=== PATIENT | male | born 1965 | race Caucasian/White ===

== ENCOUNTER 2016-10-08 10:44 | Day surgery (SDC) | payer OTHER ==
--- NOTE | 2016-10-07 08:59 | PCM.ANEPRE ---
Anesthesia Pre-Op Review Reason for Review: STOP BANG 03/02 W/ SLEEP STUDY PLANNED, IDIOPATHIC VT Anesthesia Recommendations: Proceed with Procedure Additional Comments 51 yo M scheduled for cysto with left ureteroscopy and stent placement, laser lithotripsy. Wt 110 kg (BMI 33) with Stop Bang 03/02, scheduled for sleep study but not yet completed. Non-ST MT on 04/06/2016 with cath showing mild non- ostructive CAD, normal ETT for ischemia. 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 Presented most recently to [facility] on 09/26 with left flank pain, with multiple left ureteral calculi necessitating this procedure. Delaying care for sleep study not ideal given patient's condition. Given this, proceed with procedure as scheduled including MARLENA precautions and DOS evaluation. Patient at increased risk for post-operative admission. Chart Reviewed by: Daryl Samuel MD Oct 07, 2016 08:59
[2016-10-08] VITALS (9 sets, daily range): BP systolic 132–142; BP diastolic 80–97; PULSE 63–72; RESP 15–17; O2SAT 95–99
[~2016-10-08] VITALS: Ht 182.9 cm; Wt 110.7 kg
[~2016-10-08 10:44] MED LIST: ASPI-973 PO; CeFAZolin Inj 2 GM in IV Premix 1 EACH IV ONE; Lactated Ringer's 1,000 ML IV SCH; PRAV40TA PO; VERA120C2 PO
[2016-10-08] MEDS ORDERED: Propofol 10,000 mCg/mL 20 mL Inj ONE (10:45)
[2016-10-08] MEDS ORDERED: Ondansetron 2 mg/mL 2 mL Inj ONE (10:45)
[2016-10-08] MEDS ORDERED: Glycopyrrolate 0.2 mg/mL 5 mL Inj ONE (10:45)
[2016-10-08] MEDS ORDERED: Dexamethasone 4 mg/mL Inj ONE (10:45)
[2016-10-08] MEDS ORDERED: fentaNYL-PF 50 mCg/mL 2 mL Inj ONE (10:45)
[2016-10-08] MEDS ORDERED: MetoCLOpramide 5 mg/mL 2 mL Inj ONE (10:45)
[2016-10-08] MEDS ORDERED: CeFAZolin Inj 2 gm / 50mL D5W IV ONE (10:57)
[2016-10-08] MEDS ORDERED: Lactated Ringer's 1,000 ML IV ONE (11:10)
[2016-10-08] MEDS ORDERED: Lactated Ringer's 500 ML IV PRN (12:47)
[2016-10-08] MEDS ORDERED: Lactated Ringer's 1,000 ML IV SCH (12:47)
--- NOTE | 2016-10-08 12:49 | PCM.HPANE ---
Patient Data Surgeon Admitting Provider: Attending Provider:Jeff Cardona MD Primary Care Physician:Derian Wen MD Other Provider:,[place] Anesthesia Reason for Visit Left Ureteral Stone Ht/WT & BMI Height (Feet): 6 Height (Inches): 0.00 Weight (Kilograms): 110.680 Body Mass Index 33.00 Allergies Coded Allergies: No Known Allergies (Unverified , 10/06/16) Past Anesthesia History Anesthesia History: Denies:: Anesthesia Reactions, Malignant Hyperthermia Diabetes History Hx Diabetes?: No MRSA MRSA: No Medications Blood Thinner: Aspirin Hypertension Medication: Yes (VERAPAMIL ER) Home Meds Incl Beta Alo: No Reported Medications Verapamil ER 120 Mg [id number] Mg PO DAILY Ref 0 10/06/16 Pravastatin 40 Mg [id number] Mg PO DAILY Ref 0 10/06/16 Aspirin 81 Mg [id number] Mg PO DAILY Ref 0 10/06/16 Discontinued Reported Medications Anastrozole 1 Mg Tablet1 Mg PO WEEKLY 04/06/16 Testosterone Cypionate (Depo-Testosterone)200 Mg/1 Ml [id number] Mg IM WEEKLY 04/06/16 [Hcg] No Conflict Check [id number] Weekly 04/06/16 History History of ENT Problems?: Yes HEENT History: Positive for:: Hearing Problem Teeth Condition: Broken Teeth Hx of Heart Problems?: Yes Cardiovascular History: Positive for:: Cardiac Surgery (HEART CATH 03/2016) Coronary Artery Disease (MINIMAL BY HEART CATH) Hypertension (HYPERLIPIDEMIA) Irregular Heartbeat (idiopathic ventricular tachycardia HOLTER MONITORING 05/2016) Denies:: Chest Pain Congestive Heart Failure Edema Heart Murmur Pacemaker Thrombophlebitis Valvular Heart Disease Hx of Respiratory Problem?: Yes Respiratory History: Positive for:: Chest Surgery (PNEUMOTHORAX R/T TRAUMA) Denies:: Use of C-PAP Machine (SUSPICIOUS FOR MARLENA-SLEEP STUDY PLANNED IN NEAR FUTURE) Hx Neurologic Problems?: No Hx of GI Problems?: No Hx of Problems?: Yes Genitourinary History: Positive for:: Kidney Stones (HX PRIOR STONES S/P LT ESWL LT URETERAL STONE=CURRENT PROBLEM) Male Hx: Denies:: Prostate Problems Scrotal Mass Testicular Surgery Skin History: Positive for:: History Skin Disorders? (S/P SKIN GRAFTING TO B/ L LEGS WHEN YOUNG) Denies:: Pressure Ulcers Hx Musculoskeletal Problems?: Yes Musculoskeletal History: Positive for:: Back Injury Joint Replacement (S/P LT SANCHEZ) Musculoskeletal Trauma (FALL FROM ROOF W/ MULT. TRAUMA) Hx of Psycho/Social Problems?: Yes Psycho Social History: Positive for:: Anxiety Hx Depression Denies:: Bipolar Disorder Suicide Attempt Hx Surgeries?: Yes (skin grafts, L SANCHEZ,LT ESWL,HEART CATH) Hx Any Other Health Problems?: Yes Other History: Positive for:: Hospitalization (LE [place], FALL FROM ROOF 2011- HIP FX AND PNUEMOTHORAX) Denies:: Cancer Thyroid Disease History Blood Transfusions: Positive for:: Blood Transfusions Denies:: Blood Transfuse Reaction Hx Diabetes: No Hx Alcohol Use: Yes (rarely)Hx Substance Use: Yes (MARIJUANA) Smoking Status: Former Smoker Have You Smoked inLast 12 mo: NoApprox How Many Cigarettes/day: 1 PPD X 33YRS Stop/Bang Treated for Sleep Apnea?: No Do You Have a CPAP Machine?: No S-Snoring: Do You Snore Loudly: Yes T-Tired: feel tired, fatigued: Yes O-Obsered: Observed not breath: Yes P-Blood Pressure: treated: Yes B- Body Mass Index > 35 kg/m2: Yes A- Age over 50: Yes N- Neck Large Circumference: Yes G- Gender Male: Yes MARLENA Total Score: 8 MARLENA Risk Assessment: High Risk, =/>3 Yes Risk Assessment Category Category 1A: Patient has history of documented sleep apnea, and HAS NOT received any narcotic, sedative or anesthesia administration during this stay. Category 1B: Patient has history of documented sleep apnea, and HAS received any narcotic , sedative or anesthesia administration during this stay Category 2: Patient has SUSPECTED Obstructive Sleep Apnea, and HAS received any narcotic , sedative or anesthesia administration during this stay. Category 3: Patient has SUSPECTED Obstructive Sleep Apnea and HAS NOT received narcotic, sedative or anesthesia administration during this stay. Category 4: Outpatient in Procedural Areas with known sleep apnea or who screen positive for High Risk via the STOP/BANG questionnaire. Exam Exam Vital Signs Vital Signs Date Time Temp Pulse Resp B/P Pulse Ox O2 Delivery O2 Flow Rate FiO2 10/08/16 11:22 35.8 63 17 134/91 96 Room Air General Appearance: Oriented X3 HEENT/AIRWAY: MP 2 Lungs: Normal Air Movement Heart: Regular Rate/Rhythm Meds/Labs/Diagnostics Admission Meds Current Medications Lactated Ringer's (Lr) 1,000 ml @ ud STK-MED ONCE IV Last administered on 10/08t 11:10; Start 10/08/16 at 11:10; Stop 10/08/16 at 11:14; Status DC Plan Impression Patient chart reviewed, patient interviewed and anesthestic plan with risks, benefits, and alternatives discussed, and informed consent obtained. NPO Status: 10/08@0930 SITA MORILLO ASA Physical Status: ASA3 Severe Disease Anesthetic Plan: GA Bene/Risks/Altern/Consents: Yes HP Complete Prior to Induction: Yes Erickson Navarro MD Oct 08, 2016 12:49
[2016-10-08] MEDS ORDERED: HYDROmorphone 1 mg/mL Inj IVPUSH PRN (12:50)
[2016-10-08] MEDS ORDERED: Phenylephrine 10,000 mCg/mL Inj IVPUSH PRN (12:50)
[2016-10-08] MEDS ORDERED: fentaNYL-PF 50 mCg/mL 2 mL Inj IVPUSH PRN (12:50)
[2016-10-08] MEDS ORDERED: Ondansetron 2 mg/mL 2 mL Inj IVPUSH PRN (12:50)
[2016-10-08] MEDS ORDERED: EPHEDrine Sulfate 50 mg/mL Inj IVPUSH PRN (12:50)
[2016-10-08] MEDS ORDERED: Dexamethasone 4 mg/mL Inj IVPUSH PRN (12:50)
[2016-10-08] MEDS ORDERED: MetoCLOpramide 5 mg/mL 2 mL Inj IVPUSH PRN (12:50)
[2016-10-08] MEDS ORDERED: Belladonna Alk-Opium 60 mg Rectal Suppository RECTAL ONE ×2 (15:11→15:22)
--- NOTE | 2016-10-08 15:52 | DRSVH ---
PROCEDURE: X-RAY RETROGRADE UROGRAPHY INDICATIONS: STONE REMOVAL TECHNIQUE: 5 intra-operative images acquired by the Urology service. COMPARISON: [facility], CT, KIDNEY/ URETER/BLADDER, 09/26/2016, 3:28. FINDINGS: Images of the renal collecting system demonstrate mild left hydronephrosis and no definite intraluminal filling defects are seen. No extravasation of contrast media. Visualized portions of the proximal ureter appear normal. IMPRESSION: Mild left hydronephrosis and no definite intraluminal filling defects are seen. Dictated by: Brendon KING Interpreted: Bonny Jurado MD on 10/08/2016 at 15:51 Transcribed by: EMILY on 10/08/2016 at 15:52 Approved by: Bonny Jurado M.D. on 10/08/2016 at 21:36
--- NOTE | 2016-10-08 15:53 | PCM.SURGPO ---
Immediate Operative Note Date of Surgery: Oct 08, 2016 Pre Operative Diagnosis L ureteral calculi Post Operative Diagnosis L ureteral calculi, bladder calculus Procedure Cystoscopy, L ureteroscopy, Holmium laser lithotripsy, basket extraction of calculi fragments, extraction of bladder calculus, and L ureteral stent placement (modifier 22) Surgeon and Guide Delegate Surgeon: Jeff Cardona MD Assistants: None Findings Cystoscopy revealed an approx. 5mm bladder calculus and no bladder tumors or lesions. Extraction of bladder calculus was performed. L semi-rigid ureteroscopy revealed L distal ureteral calculi x 3 (16mm, 10mm, and 9mm), which were seen to be impacted in the L distal ureter and with significant amount of edema in the L distal ureter in the area of the calculi. Holmium laser lithotripsy and basket extraction of calculi fragments were performed. L ureteral stent was placed. Complications There were no periprocedural complications identified. Surgical Specimen Removed: Yes Specimen sent to Pathology: No Surgical Specimen description: L ureteral calculi fragments Anesthetic Administered: GA Grafts, Implants: Other (28cm x 5F L ureteral JJ stent (no string)) Output, Estimated Blood Loss: <5 Blood Admin during surgery: No Additional information Patient to be discharged home when stable, to return to see me in 3-4 weeks for cystoscopy, stent removal, and post-op visit, with a KUB prior to appt. Jeff Cardona MD Oct 08, 2016 15:53
--- NOTE | 2016-10-08 16:16 | PCM.ANEP1 ---
Post Anesthesia Phase 1 PACU Phase 1 Assessment Date of Service: Oct 08, 2016 Vital Signs Vital Signs Date Time Temp Pulse Resp B/P Pulse Ox O2 Delivery O2 Flow Rate FiO2 10/08/16 16:03 72 17 142/86 96 Room Air 10/08/16 15:53 71 15 136/91 97 Room Air 10/08/16 15:45 70 17 139/89 95 Room Air 10/08/16 15:40 71 15 141/84 99 Simple Mask 10 10/08/16 15:35 72 16 132/88 98 Simple Mask 10 10/08/16 15:30 37.1 64 17 132/80 99 Simple Mask 10 10/08/16 11:22 35.8 63 17 134/91 96 Room Air Anesthetic Administered: GA Level of Alertness: Awake, talking Pain: No Nausea or Vomiting: Yes Airway Device: Oralpharangeal Airway Oxygen Delivery: Room Air Lungs: Normal Air Movement Erickson Navarro MD Oct 08, 2016 16:15
--- NOTE | 2016-10-08 16:18 | PCM.ANEP2 ---
Post Anesthesia Evaluation ASA/CMS Post Anesthesia VS in Patient's Normal Range?: Yes Resp Stable; Airway Patent?: Yes CV Function & Hydration Stable: Yes Mental Status Recovered?: Yes Pain control Satisfactory?: Yes N/V Control Satisfactory?: Yes Additional Comments patient complaining of mild discomfort in Right eye. slight photophobia and tearing. on exam i could not appreciate any deformity of laceration or abrasion. told patient we could treaqt with a tetracaine drop if he desired for short term pain relief and he declined saying that it was not that painful. I said that if he was still experiencing discomfort after 24 hours to either call us or return to the ER for further investigation and or treatment. Erickson Navarro MD Oct 08, 2016 16:18
--- NOTE | 2016-10-08 16:18 | PCM.DISURG ---
Surgical Discharge Instruction Date of Service Oct 08, 2016 Dates of Hospitalization Date of Hospital Admission Oct 08, 2016 Providers Admitting Physician: Jeff Cardona MD Primary Care Physician: Derian Wen MD Attending Physician: Jeff Cardona MD Discharge Diagnosis Discharge Diagnosis L ureteral calculi, bladder calculus Post Operative diagnosis L ureteral calculi, bladder calculus Diet Discharge Diet: No restrictions, Other (Drink at least 10-12 8oz. glasses (3 liters) of fluids per day) Activity Discharge Activity-General: No restrictions, No driving while taking narcotic Dressing and Incisional Care Hygiene: May shower Follow Up Plan Follow-up Provider (F9): Jeff Cardona MD Follow-up appointment: Weeks (3 - 4 weeks for cystoscopy, stent removal, and post-op visit, with a KUB prior to appt.) Call your provider for: Fever, Chills, Vomiting, Other (Pain uncontrolled by pain medications) Jeff Cardona MD Oct 08, 2016 16:18
[2016-10-08] MEDS ORDERED: oxyCODONE-Acetamin 5-325 mg Tablet PO PRN (16:20)
[2016-10-08] MEDS ORDERED: Phenazopyridine 97.5 mg Tablet ONE ×2 (16:40)
--- NOTE | 2016-10-09 19:20 | OP ---
[address] [address] OPERATIVE REPORT PATIENT: LESLYE SANTAMARIA : 1965 MR#: [id number] ADMIT: 10/08/2016 JOB ID: [id number] DATE OF SURGERY: 10/08/2016 PREOPERATIVE DIAGNOSIS(ES): Left ureteral calculi. POSTOPERATIVE DIAGNOSIS(ES): Left ureteral calculi, bladder calculus. PROCEDURE: Cystoscopy, left ureteroscopy, holmium laser lithotripsy and basket extraction of calculi fragments (modifier 22), extraction of bladder calculus, and left ureteral stent placement. SURGEON: Jeff Cardona MD. RN APPEALS: None. ANESTHESIA: General. ESTIMATED BLOOD LOSS: Less than 5 mL. SPECIMENS: Left ureteral calculi fragments sent to the lab for stone analysis. DRAINS: A 28 cm x 5-Niuean left ureteral double-J stent. COMPLICATIONS: None. CONDITION: Stable. FINDINGS: Cystoscopy revealed an approximately 5 mm bladder calculus and no bladder tumors or lesions. Extraction of bladder calculus was performed. Left semi-rigid ureteroscopy revealed left distal ureteral calculi x3 (16 mm, 10 mm and 9 mm), which were seen to be impacted in the left distal ureter and with significant amount of edema in the left distal ureter in the area of the calculi. Holmium laser lithotripsy and basket extraction of calculi fragments were performed. Left ureteral stent was placed. INDICATIONS: The patient is a 51-year-old male with left ureteral calculi and left hydronephrosis seen by RICARDO Hatch in the office on October 01, 2016. The patient now presents for cystoscopy, left ureteroscopy, holmium laser lithotripsy, basket extraction of calculi fragments and left ureteral stent placement. PROCEDURE: The patient was brought to the operating room and placed supine on the operating room table. The patient was given Ancef IV antibiotics. Sequential compression devices were placed. General anesthesia was administered. The patient was brought down into dorsal lithotomy position. The patient was prepped and draped in standard surgical fashion. A 22-Niuean rigid cystoscope was placed into the distal urethra without difficulty. Cystoscopy revealed normal distal urethra, an approximately 5 mm bladder calculus, no bladder tumors or lesions, and bilateral ureteral orifices in normal position. Extraction of the bladder calculus was performed via the rigid cystoscope. An angle tip Ultra Track guidewire was placed into the left ureteral orifice and was initially unable to be passed through the left distal ureter secondary to obstructing left distal ureteral calculi. A 5-Niuean open-ended catheter was passed over the guidewire through the cystoscope and into the left distal ureter. The Ultra Track guidewire was still unable to be passed past the left distal ureteral calculi. Ultra Track guidewire was removed. An angle-tip Glidewire was advanced through the open-ended catheter into the left distal ureter, and after much difficulty, the Glidewire was able to be advanced past the left distal ureteral calculi up the left ureter and into the left renal pelvis. The 5-Niuean open-ended catheter was removed. The cystoscope was removed from the patient. The Glidewire was secured to the drape with a Sonya clamp as a safety wire. A semi-rigid ureteroscope was advanced through the urethra and bladder and into the left ureteral orifice with the assistance of the angle tip Ultra Track guidewire. Left semi-rigid ureteroscopy revealed left distal ureteral calculi x3 (16 mm, 10 mm, and 9 mm), which were seen to be impacted in the left distal ureter and with significant amount of edema in the left distal ureter in the area of the calculi. Holmium laser lithotripsy of the calculi was performed using a 273 micron holmium laser fiber. Basket extraction of calculi fragments was performed using a 2.2-Niuean [employer] nitinol basket, and left ureteral calculi fragments were sent to the lab for stone analysis. Of note, significant difficulty was encountered in performing holmium laser lithotripsy and basket extraction of calculi fragments secondary to calculi being impacted in the left distal ureter and secondary to the significant amount of edema in the left distal ureter in the area of the calculi and secondary to the acute angle of the left distal ureter. However, holmium laser lithotripsy and basket extraction of calculi were able to be performed. Of note, a modifier 22 is being applied to this case secondary to the significant amount of difficulty encountered during this case as stated above, and secondary to this case taking approximately 100% longer than usual for this type of case secondary to the factors stated above. Then, the left distal ureter and left mid ureter were visualized. No significant, larger than 2 mm calculi fragments were seen. The Ultra Track guidewire was advanced up the left ureter into the left renal pelvis. The semi-rigid ureteroscope was removed from the patient. The rigid cystoscope was passed over the Ultra Track guidewire through the urethra into the bladder. A 5-Niuean open-ended catheter was passed over the guidewire through the cystoscope, up the left ureter into the left renal pelvis. The guidewire was removed. A small amount of contrast was instilled into the left renal collecting system to illuminate the left renal collecting system to aid in stent placement. The Ultra Track guidewire was passed through the open-ended catheter up the left ureter into the left renal pelvis. Open-ended catheter was removed. A 28 cm x 5-Niuean ureteral double J stent, with the stent string removed prior to stent placement, was passed over the guidewire through the cystoscope and passed up the left ureter and placed so that the proximal pigtail was located in the left renal pelvis and distal pigtail was located in the bladder. The guidewire was removed. Correct positioning of the stent was confirmed both fluoroscopically and under direct visualization using cystoscope. Good efflux of contrast could be seen draining from the distal end of the stent into the bladder, further confirming correct stent positioning. Again, modifier 22 is being applied to this case, specifically the left ureteroscopy, holmium laser lithotripsy and basket extraction of calculi fragments portion of the case secondary to the factors stated above. The bladder was drained via the cystoscope. The cystoscope was removed from the patient. The skin was cleaned and dried. Patient was placed in supine position. The patient was awakened from general anesthesia and transferred to the recovery room in stable condition. The patient tolerated the procedure well. Plan is for the patient to be discharged home when stable and for the patient to return to see me in the office in 3-4 weeks for cystoscopy, stent removal and postoperative visit with a KUB X-ray prior to the appointment. Of note, will leave the stent in for 3-4 weeks secondary to the left distal ureteral calculi being impacted and with significant amount of edema in the left distal ureter in the area of the calculi. BECKY
[2016-10-14 14:10] LABS: Stone Color Brown (.)
== END 2016-10-08 23:59 | disposition home or self-care (01) ==
LOC: SAS 10:44
PROVIDERS: ATTEND Urology
DX: N20.1 Calculus of ureter (principal); N21.0 Calculus in bladder; I10 Essential (primary) hypertension; I25.10 Atherosclerotic heart disease of native coronary artery without angina pectoris; I47.2 Ventricular tachycardia; E78.5 Hyperlipidemia, unspecified; F41.9 Anxiety disorder, unspecified; F12.90 Cannabis use, unspecified, uncomplicated; F32.9 Major depressive disorder, single episode, unspecified; Z96.642 Presence of left artificial hip joint; Z79.82 Long term (current) use of aspirin; Z86.718 Personal history of other venous thrombosis and embolism; Z87.891 Personal history of nicotine dependence; Z95.5 Presence of coronary angioplasty implant and graft
CPT/HCPCS: 52356; 74420; 82360; C2617; J0690; J1100; J2405; J2765; J3010; J7120; Q9967